=== PATIENT | female | born 1940 | race Caucasian/White ===

== ENCOUNTER 2018-02-14 08:32 | Day surgery (SDC) | payer MEDICARE, OTHER ==
[~2018-02-14 08:32] MED LIST: LIDOCAINE 2% (SDV) 5 ML INJ; PROPOFOL 200 MG INJ; SOD CHLORIDE 0.9% 1,000 ML IV; TROPICAMIDE 1% 3 ML OPH OPER
[2018-02-14] MEDS: TROPICAMIDE 1% 15 ML OPH OPER (09:10)
[2018-02-14] MEDS: DICLOFENAC 0.1% 2.5 ML OPH OPER (09:10)
[2018-02-14] MEDS: MOXIFLOXACIN 0.5% 3 ML OPH OPER (09:11)
[2018-02-14] MEDS: CYCLOPENTOLATE/PHENYLEPH 2 ML OPH OPER (09:11)
[2018-02-14] MEDS ORDERED: CARBACHOL 0.01% 1.5 ML OPH INJ (11:46)
[2018-02-14] MEDS: DEXAMETHASONE 4 MG/ML 1 ML INJ (12:23)
[2018-02-14] MEDS: TETRACAINE 0.5% 4 ML OPH (12:23)
[2018-02-14] MEDS: LIDOCAINE 2% (MDV) 20 ML INJ INJ (12:24)
[2018-02-14] MEDS: CEFAZOLIN 1 GM INJ (12:24)
[2018-02-14] MEDS: BUPIVACAINE 0.75% (MPF) 10 ML INJ INJ (12:25)
[2018-02-14] MEDS ORDERED: HYDROmorphONE 1 MG/5 ML IV SYRINGE IV ×3 (13:30)
[2018-02-14] MEDS ORDERED: FENTAnyl 50 MCG/ML VIAL IV ×2 (13:30)
[2018-02-14] MEDS ORDERED: FENTAnyl 50 MCG/ML VIAL (13:33)
[2018-02-14] MEDS: FENTAnyl 50 MCG/ML VIAL IV (14:04)
== END 2018-02-14 15:13 | disposition home or self-care (01) ==
LOC: SDS 08:32
DX: H25.011 Cortical age-related cataract, right eye (principal); I25.10 Atherosclerotic heart disease of native coronary artery without angina pectoris; E11.9 Type 2 diabetes mellitus without complications; E78.5 Hyperlipidemia, unspecified
CPT/HCPCS: 66984; 82962

== ENCOUNTER 2018-04-25 05:39 | Day surgery (SDC) | payer MEDICARE, OTHER ==
[2018-04-25] MEDS ORDERED: SOD CHLORIDE 0.9% 1,000 ML IV (06:00)
[2018-04-25] MEDS: DICLOFENAC 0.1% 2.5 ML OPH OPER (06:08)
[2018-04-25] MEDS: CYCLOPENTOLATE/PHENYLEPH 2 ML OPH OPER (06:09)
[2018-04-25] MEDS: MOXIFLOXACIN 0.5% 3 ML OPH OPER (06:09)
[2018-04-25] MEDS: TROPICAMIDE 1% 15 ML OPH OPER (06:09)
[2018-04-25] MEDS: CARBACHOL 0.01% 1.5 ML OPH INJ (06:46)
[2018-04-25] MEDS ORDERED: LIDOCAINE 4% (MPF) 5 ML INJ (06:46)
[2018-04-25] MEDS: CEFAZOLIN 1 GM INJ (06:46)
[2018-04-25] MEDS ORDERED: NA HYALURONATE/CHONDROITIN 0.5 ML SYG (06:47)
[2018-04-25] MEDS: DEXAMETHASONE 4 MG/ML 1 ML INJ (06:47)
[2018-04-25] MEDS ORDERED: TETRACAINE 0.5% 4 ML OPH (06:47)
[2018-04-25] MEDS ORDERED: EPINEPHrine 1 MG INJ (06:47)
[2018-04-25] MEDS ORDERED: GENTAMICIN 80 MG INJ (06:47)
[2018-04-25] MEDS ORDERED: GLUCOSE GEL 15 GRAM TUBE PO ×2 (07:00)
[2018-04-25] MEDS ORDERED: GLUCOSE GEL 15 GRAM TUBE BUCCAL (07:00)
[2018-04-25] MEDS ORDERED: GLUCAGON 1 MG INJ IM (07:00)
[2018-04-25] MEDS ORDERED: DEXTROSE 50% 50 ML SYRINGE IV ×2 (07:00)
[2018-04-25] MEDS: INSULIN ASPART [NOVOLOG] 3 ML PEN SC ×2 (07:11→08:35)
[2018-04-25] MEDS ORDERED: hydrALAzine 20 MG INJ IV (07:30)
[2018-04-25] MEDS ORDERED: FENTAnyl 50 MCG/ML VIAL IV (07:30)
[2018-04-25] MEDS ORDERED: ALBUTEROL 0.083% (NEB) 2.5 MG/3 ML AMP HHN (07:30)
[2018-04-25] MEDS ORDERED: LABETALOL HCL 20MG INJ IV (07:30)
[2018-04-25] MEDS ORDERED: ACETAMINOPHEN 325 MG TAB PO (07:30)
[2018-04-25] MEDS ORDERED: ONDANSETRON 4 MG INJ IV (07:30)
[2018-04-25] MEDS ORDERED: DIPHENHYDRAMINE 50 MG INJ IV (07:30)
[2018-04-25] MEDS ORDERED: PROPOFOL 20 ML (07:37)
[2018-04-25] MEDS ORDERED: LIDOCAINE 2% (SDV) 5 ML INJ (07:37)
[2018-04-25] MEDS ORDERED: FENTAnyl 50 MCG/ML VIAL (07:55)
[2018-04-25] MEDS: ACETAMINOPHEN 500 MG TAB PO (09:17)
[2018-04-26] MEDS ORDERED: ACCU-CHEK XX (02:00)
== END 2018-04-25 09:38 | disposition home or self-care (01) ==
LOC: SDS 05:39
DX: H25.12 Age-related nuclear cataract, left eye (principal); E78.5 Hyperlipidemia, unspecified; I25.10 Atherosclerotic heart disease of native coronary artery without angina pectoris; E11.9 Type 2 diabetes mellitus without complications; Z79.4 Long term (current) use of insulin; Z79.82 Long term (current) use of aspirin
CPT/HCPCS: 66984; 82962

== ENCOUNTER 2018-07-08 21:07 | Observation (INO) | payer MEDICARE, OTHER ==
[2018-07-08 23:42] LABS: ADD MAN DIFF? NO
[2018-07-08 23:44] LABS: WHITE BLOOD COUNT 9.1 10^3/ul (4.8-10.8)
[2018-07-08 23:44] LABS: ABNORMAL IP MESSAGE 1; BASOPHILS % 0.4 % (0.0-2.0); EOSINOPHILS # 0.1 10^3/ul (0.0-0.5); EOSINOPHILS % 1.4 % (0.0-7.0); HEMATOCRIT 35.7 % (37.0-47.0); HEMOGLOBIN 10.8 g/dl (12.0-16.0); LYMPHOCYTES # 1.9 10^3/ul (0.8-2.9); LYMPHOCYTES % 20.6 % (15.0-51.0); MEAN CORPUSCULAR HEMOGLOBIN 28.1 pg (29.0-33.0); MEAN CORPUSCULAR HGB CONC 30.3 g/dl (32.0-37.0); MEAN CORPUSCULAR VOLUME 92.7 fl (82.0-101.0); MEAN PLATELET VOLUME 13.3 fl (7.4-10.4); MONOCYTE # 0.4 10^3/ul (0.3-0.9); MONOCYTES % 4.8 % (0.0-11.0); NEUTROPHIL # 6.5 10^3/ul (1.6-7.5); NEUTROPHILS % 71.6 % (39.0-77.0); PLATELET COUNT 143 10^3/UL (140-415); RED BLOOD COUNT 3.85 10^6/ul (4.20-5.40); RED CELL DISTRIBUTION WIDTH 17.3 % (11.5-14.5)
[2018-07-08] MEDS: ONDANSETRON 4 MG INJ IV (23:44)
[2018-07-08 23:46] LABS: POSITIVE DIFF @See below
[2018-07-09 00:01] LABS: ALANINE AMINOTRANSFERASE 9 IU/L (13-69); ALBUMIN 3.8 g/dl (3.3-4.9); ALBUMIN/GLOBULIN RATIO 1.26; ALKALINE PHOSPHATASE 88 IU/L (42-121); ANION GAP 8 (5-13); ASPARTATE AMINO TRANSFERASE 20 IU/L (15-46); BILIRUBIN,INDIRECT 0.3 mg/dl (0-1.1); BILIRUBIN,TOTAL 0.3 mg/dl (0.2-1.3); BLOOD UREA NITROGEN 28 mg/dl (7-20); CALCIUM 9.1 mg/dl (8.4-10.2); CARBON DIOXIDE 26 mmol/L (21-31); CHLORIDE 109 mmol/L (97-110); CREATININE 1.33 mg/dl (0.44-1.00); GLUCOSE 253 mg/dl (70-220); POTASSIUM 4.6 mmol/L (3.5-5.1); SODIUM 143 mmol/L (135-144); TOTAL PROTEIN 6.8 g/dl (6.1-8.1)
[2018-07-09 00:09] LABS: B-TYPE NATRIURETIC PEPTIDE 715 PG/ML (0-450)
[2018-07-09 00:14] LABS: TROPONIN-I < 0.012 ng/ml (0.000-0.120)
[2018-07-09] MEDS: FUROSEMIDE 20 MG INJ IV ×2 (01:07→10:16)
[2018-07-09] MEDS ORDERED: NITROGLYCERIN (SL) 0.4 MG TAB SL (03:30)
[2018-07-09] MEDS ORDERED: NACL 0.9% 3 ML SYG IV (03:30)
[2018-07-09] MEDS ORDERED: ONDANSETRON 4 MG INJ IV (03:30)
[2018-07-09] MEDS ORDERED: ALBUTEROL/IPRATROPIUM (NEB) 3 ML AMP HHN (03:30)
[2018-07-09] MEDS ORDERED: GLUCOSE GEL 15 GRAM TUBE BUCCAL (04:00)
[2018-07-09] MEDS ORDERED: DEXTROSE 50% 50 ML SYRINGE IV ×2 (04:00)
[2018-07-09] MEDS ORDERED: GLUCAGON 1 MG INJ IM (04:00)
[2018-07-09] MEDS ORDERED: GLUCOSE GEL 15 GRAM TUBE PO ×2 (04:00)
[2018-07-09] MEDS: ACETAMINOPHEN 325 MG TAB PO ×2 (05:18→20:11)
[2018-07-09 06:13] LABS: ADD MAN DIFF? NO
[2018-07-09 06:21] LABS: BASOPHILS % 0.4 % (0.0-2.0); EOSINOPHILS # 0.2 10^3/ul (0.0-0.5); EOSINOPHILS % 2.1 % (0.0-7.0); HEMATOCRIT 31.5 % (37.0-47.0); HEMOGLOBIN 9.5 g/dl (12.0-16.0); LYMPHOCYTES % 25.2 % (15.0-51.0); MEAN CORPUSCULAR HEMOGLOBIN 28.1 pg (29.0-33.0); MEAN CORPUSCULAR HGB CONC 30.2 g/dl (32.0-37.0); MEAN CORPUSCULAR VOLUME 93.2 fl (82.0-101.0); MEAN PLATELET VOLUME 12.8 fl (7.4-10.4); MONOCYTE # 0.4 10^3/ul (0.3-0.9); MONOCYTES % 5.1 % (0.0-11.0); NEUTROPHIL # 5.3 10^3/ul (1.6-7.5); NEUTROPHILS % 66.3 % (39.0-77.0); PLATELET COUNT 123 10^3/UL (140-415); RED BLOOD COUNT 3.38 10^6/ul (4.20-5.40); RED CELL DISTRIBUTION WIDTH 17.2 % (11.5-14.5)
[2018-07-09 06:43] LABS: ALANINE AMINOTRANSFERASE 9 IU/L (13-69); ALBUMIN/GLOBULIN RATIO 1.11; ALKALINE PHOSPHATASE 76 IU/L (42-121); ANION GAP 6 (5-13); ASPARTATE AMINO TRANSFERASE 14 IU/L (15-46); BILIRUBIN,INDIRECT 0.2 mg/dl (0-1.1); BILIRUBIN,TOTAL 0.2 mg/dl (0.2-1.3); BLOOD UREA NITROGEN 28 mg/dl (7-20); CALCIUM 8.6 mg/dl (8.4-10.2); CARBON DIOXIDE 27 mmol/L (21-31); CHLORIDE 110 mmol/L (97-110); CHOLESTEROL 117 mg/dl (100-200); CREATINE KINASE 37 IU/L (23-200); CREATININE 1.39 mg/dl (0.44-1.00); GLUCOSE 167 mg/dl (70-220); HDL CHOLESTEROL 38 mg/dl (33-92); LDL CHOLESTEROL,CALCULATED 51 mg/dl; MAGNESIUM 1.7 mg/dl (1.7-2.5); POTASSIUM 4.9 mmol/L (3.5-5.1); SODIUM 143 mmol/L (135-144); TOTAL PROTEIN 5.7 g/dl (6.1-8.1); TRIGLYCERIDES 138 mg/dl (0-149)
[2018-07-09 06:53] LABS: CK INDEX 1.4; CK-MB 0.52 ng/ml (0.0-2.4); TROPONIN-I < 0.012 ng/ml (0.000-0.120)
[2018-07-09 07:12] LABS: THYROID STIMULATING HORMONE 0.903 MIU/L (0.465-4.680)
[2018-07-09 07:50] LABS: HEMOGLOBIN A1C 9.8 % (0-5.9)
[2018-07-09] MEDS ORDERED: NON-FORMULARY/PATIENT OWN MED (Insulin Lispro (Humalog Kwikpen U-100) 8 UNIT) SQ (08:00)
[2018-07-09] MEDS: FUROSEMIDE 40 MG TAB PO (08:27)
[2018-07-09] MEDS: SPIRONOLACTONE 25 MG TAB PO ×2 (08:35→20:11)
[2018-07-09] MEDS: MAGNESIUM OXIDE 400 MG TAB PO (08:35)
[2018-07-09] MEDS: METOLAZONE 2.5 MG TAB PO ×2 (08:35→09:00)
[2018-07-09] MEDS: ALLOPURINOL 100 MG TAB PO (08:35)
[2018-07-09] MEDS: DOXAZOSIN 2 MG TAB PO ×2 (08:36→20:11)
[2018-07-09] MEDS: GABAPENTIN 100 MG CAP PO ×4 (08:36→20:11)
[2018-07-09] MEDS: PANTOPRAZOLE (EC) 40 MG TAB PO (08:36)
[2018-07-09] MEDS: INSULIN GLARGINE [LANTus] (100 UNITS/ML) SYG SC (08:39)
[2018-07-09] MEDS: INSULIN ASPART [NOVOLOG] 3 ML PEN SC ×7 (08:39→20:16)
[2018-07-09] MEDS: HEPARIN 5,000 UNIT/1 ML VIAL SC ×2 (08:39→20:20)
[2018-07-09] MEDS ORDERED: LOSARTAN 50 MG TAB PO (09:00)
[2018-07-09] MEDS: METOPROLOL 50 MG TAB PO ×2 (09:00→12:04)
[2018-07-09 11:16] LABS: CREATINE KINASE 47 IU/L (23-200)
[2018-07-09 11:26] LABS: CK-MB 0.49 ng/ml (0.0-2.4)
[2018-07-09 11:29] LABS: TROPONIN-I < 0.012 ng/ml (0.000-0.120)
[2018-07-09 13:32] LABS: IRON 35 ug/dl (35-150)
[2018-07-09 13:41] LABS: % IRON SATURATION 10 % SAT (22-52); TOTAL IRON BINDING CAPACITY 341 ug/dl (241-421)
[2018-07-09] MEDS: [UNRECOGNIZED DRUG - OTHER] XX ×2 (14:30→22:30)
[2018-07-09] MEDS: FUROSEMIDE 40 MG INJ IV (17:29)
[2018-07-10] MEDS: ACCU-CHEK XX (02:00)
[2018-07-10 05:52] LABS: ADD MAN DIFF? NO
[2018-07-10] MEDS: FUROSEMIDE 40 MG INJ IV (06:02)
[2018-07-10 06:04] LABS: ABNORMAL IP MESSAGE 1; BASOPHILS % 0.4 % (0.0-2.0); EOSINOPHILS # 0.2 10^3/ul (0.0-0.5); EOSINOPHILS % 2.7 % (0.0-7.0); HEMATOCRIT 30.9 % (37.0-47.0); HEMOGLOBIN 9.5 g/dl (12.0-16.0); LYMPHOCYTES # 2.1 10^3/ul (0.8-2.9); LYMPHOCYTES % 27.4 % (15.0-51.0); MEAN CORPUSCULAR HEMOGLOBIN 28.4 pg (29.0-33.0); MEAN CORPUSCULAR HGB CONC 30.7 g/dl (32.0-37.0); MEAN CORPUSCULAR VOLUME 92.2 fl (82.0-101.0); MEAN PLATELET VOLUME 13.7 fl (7.4-10.4); MONOCYTE # 0.5 10^3/ul (0.3-0.9); NEUTROPHIL # 4.8 10^3/ul (1.6-7.5); NEUTROPHILS % 62.5 % (39.0-77.0); PLATELET COUNT 118 10^3/UL (140-415); RED BLOOD COUNT 3.35 10^6/ul (4.20-5.40); RED CELL DISTRIBUTION WIDTH 16.8 % (11.5-14.5)
[2018-07-10 06:04] LABS: WHITE BLOOD COUNT 7.7 10^3/ul (4.8-10.8)
[2018-07-10 06:40] LABS: ANION GAP 7 (5-13); BLOOD UREA NITROGEN 29 mg/dl (7-20); CALCIUM 8.8 mg/dl (8.4-10.2); CARBON DIOXIDE 26 mmol/L (21-31); CHLORIDE 107 mmol/L (97-110); CREATININE 1.61 mg/dl (0.44-1.00); GLUCOSE 103 mg/dl (70-220); MAGNESIUM 1.5 mg/dl (1.7-2.5); PHOSPHORUS 5.1 mg/dl (2.5-4.9); POTASSIUM 4.2 mmol/L (3.5-5.1); SODIUM 140 mmol/L (135-144)
[2018-07-10 07:03] LABS: POSITIVE DIFF @See below
[2018-07-10] MEDS: INSULIN ASPART [NOVOLOG] 3 ML PEN SC ×7 (08:00→21:00)
[2018-07-10] MEDS: SPIRONOLACTONE 25 MG TAB PO ×2 (08:02→21:26)
[2018-07-10] MEDS: ALLOPURINOL 100 MG TAB PO (08:02)
[2018-07-10] MEDS: METOLAZONE 2.5 MG TAB PO (08:02)
[2018-07-10] MEDS: PANTOPRAZOLE (EC) 40 MG TAB PO (08:02)
[2018-07-10] MEDS: MAGNESIUM OXIDE 400 MG TAB PO (08:02)
[2018-07-10] MEDS: DOXAZOSIN 2 MG TAB PO ×2 (08:03→21:27)
[2018-07-10] MEDS: METOPROLOL 50 MG TAB PO (08:04)
[2018-07-10] MEDS: GABAPENTIN 100 MG CAP PO ×4 (08:05→21:27)
[2018-07-10] MEDS: HEPARIN 5,000 UNIT/1 ML VIAL SC ×2 (08:10→21:39)
[2018-07-10] MEDS: INSULIN GLARGINE [LANTus] (100 UNITS/ML) SYG SC (08:13)
[2018-07-10] MEDS: MULTIVITAMINS THERAPEUTIC TAB PO (08:17)
[2018-07-10] MEDS: ASPIRIN (EC) 81 MG TAB PO (08:17)
[2018-07-10] MEDS ORDERED: CYANOCOBALAMIN 500 MCG TAB PO (09:00)
[2018-07-10] MEDS ORDERED: ASPIRIN (EC) 81 MG TAB PO (09:00)
[2018-07-10] MEDS: ACETAMINOPHEN 325 MG TAB PO (09:30)
[2018-07-10] MEDS ORDERED: GUAIFENESIN 20 MG/ML 5ML CUP PO (11:00)
[2018-07-10] MEDS: MAGNESIUM SULFATE 2 GM/50 ML 50 ML IVPB (13:41)
[2018-07-10] MEDS ORDERED: FUROSEMIDE 20 MG INJ IV (18:00)
[2018-07-10] MEDS: ATORVASTATIN 40 MG TAB PO (21:26)
[2018-07-11] MEDS: ACCU-CHEK XX (02:00)
[2018-07-11] MEDS: ACETAMINOPHEN 325 MG TAB PO (04:43)
[2018-07-11] MEDS: INSULIN ASPART [NOVOLOG] 3 ML PEN SC ×6 (07:44→17:08)
[2018-07-11] MEDS: PANTOPRAZOLE (EC) 40 MG TAB PO (08:21)
[2018-07-11] MEDS: MULTIVITAMINS THERAPEUTIC TAB PO (08:21)
[2018-07-11] MEDS: MAGNESIUM OXIDE 400 MG TAB PO (08:21)
[2018-07-11] MEDS: ALLOPURINOL 100 MG TAB PO (08:21)
[2018-07-11] MEDS: GABAPENTIN 100 MG CAP PO ×4 (08:21→17:12)
[2018-07-11] MEDS: ASPIRIN (EC) 81 MG TAB PO (08:21)
[2018-07-11] MEDS: SPIRONOLACTONE 25 MG TAB PO (08:23)
[2018-07-11] MEDS: DOXAZOSIN 2 MG TAB PO (08:23)
[2018-07-11] MEDS: METOPROLOL 50 MG TAB PO (08:23)
[2018-07-11] MEDS: METOLAZONE 2.5 MG TAB PO (08:23)
[2018-07-11] MEDS: FUROSEMIDE 40 MG TAB PO (08:24)
[2018-07-11] MEDS: INSULIN GLARGINE [LANTus] (100 UNITS/ML) SYG SC (08:29)
[2018-07-11] MEDS: HEPARIN 5,000 UNIT/1 ML VIAL SC (08:30)
== END 2018-07-11 18:15 | disposition home or self-care (01) ==
LOC: E/R 21:07 → 6WM 07-09 01:16
DX: R07.89 Other chest pain (principal); I13.0 Hypertensive heart and chronic kidney disease with heart failure and stage 1 through stage 4 chronic kidney disease, or unspecified chronic kidney disease; E11.22 Type 2 diabetes mellitus with diabetic chronic kidney disease; N18.3 Chronic kidney disease, stage 3 (moderate); I50.9 Heart failure, unspecified; D63.1 Anemia in chronic kidney disease; E78.5 Hyperlipidemia, unspecified; I25.10 Atherosclerotic heart disease of native coronary artery without angina pectoris; Z95.5 Presence of coronary angioplasty implant and graft; M10.9 Gout, unspecified; Z79.82 Long term (current) use of aspirin; Z79.4 Long term (current) use of insulin
CPT/HCPCS: 71045; 71250; 80048; 80053; 80061; 82550; 82553; 82962; 83036; 83540; 83735; 83880; 84100; 84443; 84484; 85025; 93005; 93306; 96374; 96375; 97161; 99285-25; G0378